=== PATIENT | male | born 1955 | race Caucasian/White ===

== ENCOUNTER 2017-09-30 14:07 | Emergency (ER) | payer OTHER ==
--- NOTE | 2017-09-30 14:55 | EDM.PDOC ---
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[employer], off at 7a, did some work at an [employer], then helped girlfriend move boxes she had been just started on a beta garth and checked her BP, then asked pt if he wanted his BP checked, pt reports his HR was 165 then 144 then 141 with BP 120/80, he then came directly to ED no sxs, no CP, no palpitations, no SOB pt says his HR was 144 on arrival here when in fact it was normal pt apparently misread the BP cuff at home and perhaps confused the SBP as the cuff was deflating with his HR pt told RN he drinks a 6-pack daily, told me he had 4 beers today, drank some water and 4 cups of coffee not seen a physician in 3y, not on meds, had been on Strattera for ADHD, amlodipine for HTN and Wellbutrin for depression smokes 1.5 ppd had a stress test 10y ago at [facility] as a precaution when he turned 52, no sxs in ED here 5y ago with palpitations and sent to [place], pt says "they did not do anything", no repeat stress test here with girlfriend, no sxs here EKG with SR 87, LAD -40, early transition, no acute change c/w 5y ago - Related Data Allergies Allergy/AdvReac Type Severity Reaction Status Date / Time No Known Allergies Allergy Verified 09/30/17 14:41 Home Meds: Home Meds NK [No Known Home Meds] 09/30/17 [History] Social & Family History - Tobacco Use Years of Tobacco use: 40 - Alcohol Use Days Per Week of Alcohol Use: 0 - Recreational Drug Use Recreational Drug Use: No ED ROS GENERAL - Review of Systems Review Of Systems: See Below Constitutional: Reports: No Symptoms HEENT: Reports: No Symptoms Respiratory: Reports: No Symptoms Cardiovascular: Reports: No Symptoms Endocrine: Reports: No Symptoms GI/Abdominal: Reports: No Symptoms : Reports: No Symptoms Musculoskeletal: Reports: No Symptoms Skin: Reports: No Symptoms Neurological: Reports: No Symptoms Psychiatric: Reports: No Symptoms Hematologic/Lymphatic: Reports: No Symptoms Immunologic: Reports: No Symptoms ED EXAM, GENERAL - Physical Exam Exam: See Below Exam Limited By: No Limitations General Appearance: Alert, WD/WN, No Apparent Distress Nose: Normal Inspection, Normal Mucosa, No Blood Throat/Mouth: Normal Inspection, Normal Lips, Normal Teeth, Normal Gums, Normal Oropharynx, Normal Voice, No Airway Compromise Head: Atraumatic, Normocephalic Neck: Normal Inspection, Supple, Non-Tender, Full Range of Motion Respiratory/Chest: No Respiratory Distress, Lungs Clear, Normal Breath Sounds, No Accessory Muscle Use, Chest Non-Tender Cardiovascular: Regular Rate, Rhythm, No Edema, No Gallop, No JVD, No Murmur, No Rub GI/Abdominal: Normal Bowel Sounds, Soft, Non-Tender, No Organomegaly, No Distention Back Exam: Normal Inspection, Full Range of Motion, NT Extremities: Normal Inspection, Normal Range of Motion, Non-Tender, No Pedal Edema Neurological: Alert, Oriented, CN II-XII Intact, Normal Cognition, No Motor/ Sensory Deficits Psychiatric: Normal Affect, Normal Mood Skin Exam: Warm, Dry, Intact, Normal Color, No Rash Lymphatic: No Adenopathy Course - Vital Signs Last Recorded V/S: Last Vital Signs Temp 36.5 C 09/30/17 14:11 Pulse 91 09/30/17 14:11 Resp 18 09/30/17 14:11 BP 130/86 09/30/17 14:11 Pulse Ox 97 09/30/17 14:11 - Orders/Labs/Meds Orders: Active Orders 24 hr Category Date Time Status EKG 12 Lead [EK] Routine Ther 09/30/17 14:45 Ordered Labs: Laboratory Tests 09/30/17 09/30/17 09/30/17 Range/Units 14:25 14:25 14:25 WBC 6.8 (4.5-12.0) X10-3/uL RBC 4.73 (4.30-5.75) x10(6)uL Hgb 14.9 (11.5-15.5) g/dL Hct 44.9 (30.0-51.3) % MCV 95.0 (80-96) fL MCH 31.6 (27.7-33.6) pg MCHC 33.2 (32.2-35.4) g/dL RDW 12.0 (11.5-15.5) % Plt Count 234 (125-369) X10(3)uL MPV 9.0 (7.4-10.4) fL Neut % (Auto) 56.0 (46-82) % Lymph % (Auto) 30.9 (13-37) % [place] % (Auto) 8.7 (4-12) % Eos % (Auto) 4 (1.0-5.0) % Baso % (Auto) 1 (0-2) % Neut # (Auto) 3.8 (1.6-8.3) # Lymph # (Auto) 2.1 (0.6-5.0) # [place] # (Auto) 0.6 (0.0-1.3) # Eos # (Auto) 0.3 (0.0-0.8) # Baso # (Auto) 0.0 (0.0-0.2) # Sodium 139 (135-145) mmol/L Potassium 3.7 (3.5-5.3) mmol/L Chloride 101 (100-110) mmol/L Carbon Dioxide 28 (21-32) mmol/L BUN 13 (7-18) mg/dL Creatinine 0.9 (0.70-1.30) mg/dL Est Cr Clr Drug Dosing 104.32 mL/min Estimated GFR (MDRD) > 60 (>60) BUN/Creatinine Ratio 14.4 (9-20) Glucose 95 (80-116) mg/dL Calcium 9.1 (8.6-10.2) mg/dL Magnesium (1.8-2.5) mg/dL Total Bilirubin 0.4 (0.1-1.3) mg/dL AST 37 H (5-25) IU/L ALT 41 H (12-36) U/L Alkaline Phosphatase 80 (56-112) IU/L Troponin I < 0.017 L (<0.017-0.056) ng/mL Total Protein 8.0 (6.0-8.0) g/dL Albumin 4.0 (3.2-4.6) g/dL Globulin 4.0 g/dL Albumin/Globulin Ratio 1.0 TSH, Ultra Sensitive 1.23 (0.36-3.74) IU/mL 04/11/18 Range/Units 14:25 WBC (4.5-12.0) X10-3/uL RBC (4.30-5.75) x10(6)uL Hgb (11.5-15.5) g/dL Hct (30.0-51.3) % MCV (80-96) fL MCH (27.7-33.6) pg MCHC (32.2-35.4) g/dL RDW (11.5-15.5) % Plt Count (125-369) X10(3)uL MPV (7.4-10.4) fL Neut % (Auto) (46-82) % Lymph % (Auto) (13-37) % [place] % (Auto) (4-12) % Eos % (Auto) (1.0-5.0) % Baso % (Auto) (0-2) % Neut # (Auto) (1.6-8.3) # Lymph # (Auto) (0.6-5.0) # [place] # (Auto) (0.0-1.3) # Eos # (Auto) (0.0-0.8) # Baso # (Auto) (0.0-0.2) # Sodium (135-145) mmol/L Potassium (3.5-5.3) mmol/L Chloride (100-110) mmol/L Carbon Dioxide (21-32) mmol/L BUN (7-18) mg/dL Creatinine (0.70-1.30) mg/dL Est Cr Clr Drug Dosing mL/min Estimated GFR (MDRD) (>60) BUN/Creatinine Ratio (9-20) Glucose (80-116) mg/dL Calcium (8.6-10.2) mg/dL Magnesium 2.0 (1.8-2.5) mg/dL Total Bilirubin (0.1-1.3) mg/dL AST (5-25) IU/L ALT (12-36) U/L Alkaline Phosphatase (56-112) IU/L Troponin I (<0.017-0.056) ng/mL Total Protein (6.0-8.0) g/dL Albumin (3.2-4.6) g/dL Globulin g/dL Albumin/Globulin Ratio TSH, Ultra Sensitive (0.36-3.74) IU/mL - Re-Assessments/Exams Free Text/Narrative Re-Assessment/Exam: 09/30/17 15:49 labs neg except for inc'd LFTs c/w mild alcoholic hepatitis I explained to pt and girlfriend that inc'd HR readings appear to artifact and not physiologic, I explained that HR was normal here the entire time including on arrival, girlfriend insisted his HR was 144 on the monitor on arrival, however RN said it was normal and that she had misread the monitor BP 117/77 now with HR 78 Departure - Departure Time of Disposition: 15:50 Disposition: Home, Self-Care 01 Condition: Good Clinical Impression: Palpitations, Elevated liver enzymes Instructions: Palpitations Referrals: PCP,None [Primary Care Provider] - Additional Instructions: Your workup is negative here except for the increase in your liver enzymes, which you should discuss with your doctor. Your heart rate has been normal here. Your blood pressure is within normal range here. See a primary care physician in the next week for further evaluation as well as general health review. Call your Physician or Return to Emergency Department if: * Your condition worsens in any way. * You develop fever greater than 100.4. * You have vomitting that does not stop with medications. * You have pain that is not controlled with medications. - My Orders Last 24 Hours: My Active Orders 09/30/17 14:45 EKG 12 Lead [EK] Routine - Assessment/Plan Last 24 Hours: My Active Orders 09/30/17 14:45 EKG 12 Lead [EK] Routine
== END 2017-09-30 16:05 | disposition home or self-care (01) ==
LOC: FB.ED 14:07
DX: R00.2 Palpitations (principal); R74.8 Abnormal levels of other serum enzymes
CPT/HCPCS: 36415; 80053; 83735; 84443; 84484; 85025; 93005; 99285